=== PATIENT | female | born 1960 | race Two or more races ===

== ENCOUNTER 2020-04-15 08:30 | Inpatient (IN) | payer OTHER ==
[~2020-04-15] VITALS: Ht 170.2 cm; Wt 89.4 kg
[2020-04-15] MEDS ORDERED: CRESTOR20 MG PO (10:13)
[2020-04-15] MEDS ORDERED: MELOXICAM15 MG (10:13)
[2020-04-15] MEDS ORDERED: METHOTREXATE PO (10:14)
[2020-04-15] MEDS ORDERED: VITAMIN D3 PO (10:15)
[2020-04-15] MEDS ORDERED: PROTONIX40 MG PO (10:15)
[2020-04-15] MEDS ORDERED: SUPER B-50 COM1 EACH PO (10:16)
[2020-04-21] MEDS ORDERED: [UNRECOGNIZED DRUG - OTHER] IJ (13:05)
[2020-04-21] MEDS ORDERED: VITAMIN D310 MC4 PO (13:10)
[2020-04-21] MEDS ORDERED: VITAMIN B-121000 MC4 PO (13:12)
[2020-04-21] MEDS ORDERED: METHOTREXATE2.5 MG PO (13:13)
== END 2020-04-24 21:42 | DRG 470 ==
LOC: SURH 04-21 08:30 → O/R 04-21 09:30 → EDSEX 04-21 09:30 → SURG 04-21 09:30 → SURH 04-21 12:15 → SURG 04-21 20:07
PROVIDERS: ADMIT Orthopaedic Surgery; ATTEND Orthopaedic Surgery
PROC: 0SR90JZ Replacement of Right Hip Joint with Synthetic Substitute, Open Approach (ICD-10-PCS; principal; 2020-04-21 12:15)
PROC: 30233N1 Transfusion of Nonautologous Red Blood Cells into Peripheral Vein, Percutaneous Approach (ICD-10-PCS; 2020-04-23)
DX: M16.11 Unilateral primary osteoarthritis, right hip (principal); D62 Acute posthemorrhagic anemia; M06.89 Other specified rheumatoid arthritis, multiple sites; M32.8 Other forms of systemic lupus erythematosus; Z20.828 Contact with and (suspected) exposure to other viral communicable diseases